=== PATIENT | male | born 1990 | race Caucasian/White ===

== ENCOUNTER 2022-08-11 09:03 | Outpatient (REF) | payer OTHER, SELFPAY ==
[2022-08-11 11:14] LABS: MANUAL DIFF FLAG NO
[2022-08-11 11:36] LABS: Appearance Urine Clear; Basophils Absolute Auto 0.1 X10*3/uL (0.0-0.2); Color Urine Yellow; Eosinophils Absolute Auto 0.1 X10*3/uL (0.0-0.4); Eosinophils Percent Auto 1.5 % (0-4); Glucose Urine UA Negative (Negative); Hematocrit 45.4 % (42.0-52.0); Hemoglobin 15.6 g/dl (14.0-18.0); Imm Gran Abs Auto 0.06 X10*3/uL (0.00-0.03); Leukocyte Esterase Urine Negative (Negative); Lymphocytes Absolute Auto 1.6 X10*3/uL (1.2-4.9); Lymphocytes Percent Auto 25.6 % (20-40); Mean Corpuscular HGB Conc 34.4 g/dl (31.0-36.0); Mean Corpuscular Hemoglobin 30.2 pg (27.0-33.0); Mean Platelet Volume 8.9 fL (9.4-12.4); Monocytes Absolute Auto 0.4 X10*3/uL (0.1-1.2); Monocytes Percent Auto 6.8 % (2-11); Neutrophils Percent Auto 64.1 % (45-73); Nitrite Urine Negative (Negative); Platelet Count 274 X10*3/uL (160-400); Red Blood Count 5.16 X10*6/uL (4.60-5.80); Red Cell Distribution Width 12.5 % (11.0-16.0); Specific Gravity - Urine <= 1.005 (1.005-1.025); Urine Blood Negative (Negative); Urine Ketones Negative (Negative); Urine Protein Negative (Neg-Trace); White Blood Count 6.2 X10*3/uL (4.8-10.8)
[2022-08-11 12:30] LABS: Alanine Aminotransferase 31 U/L (0-40); Albumin Level 4.6 g/dL (3.5-5.0); Alkaline Phosphatase 53 U/L (39-117); Anion Gap 11 (12-20); Aspartate Amino Transferase 21 U/L (5-37); Bilirubin Total 0.8 mg/dL (0.0-1.0); Blood Urea Nitrogen 13 mg/dL (9-16); Calcium 9.8 mg/dL (8.4-10.2); Carbon Dioxide 28 mmol/L (22-29); Chloride 105 mmol/L (96-108); Cholesterol 205 mg/dL; Estimated Glomerular Filt Rate > 60; Glucose Fasting 83 mg/dL (60-99); HDL Cholesterol 35 mg/dL; LDL Cholesterol Calculated 121 mg/dl; Potassium 4.3 mmol/L (3.3-5.1); Sodium 140 mmol/L (135-145); Total Protein 7.5 g/dL (6.5-8.0); Triglycerides 248 mg/dL
[2022-08-11 12:36] LABS: TSH reflex Free T4 1.39 uIU/mL (0.32-4.0)
== END 2022-08-11 09:04 | disposition home or self-care (01) ==
LOC: HO.WFDLDS 09:03
PROVIDERS: Visit Provider Nurse Practitioner Family
DX: Z00.00 Encounter for general adult medical examination without abnormal findings (principal); K21.9 Gastro-esophageal reflux disease without esophagitis
CPT/HCPCS: 36415; 80053; 80061; 81003; 84443; 85025

== ENCOUNTER 2022-09-15 11:32 | Outpatient (AMB) | payer OTHER, SELFPAY ==
--- NOTE | 2022-09-15 11:42 | MHC.OFFVIS ---
Intake Vital Signs 09/15/22 11:43 Height 6 ft Weight 205 lb 0.478 oz BMI 27.8 BP 132/81 Blood Pressure Location Lt brachial Position Sitting Pulse 81 Intake Visit Reasons: Gastroesophageal reflux disease (GERD) Intake Note: Surya presents in office as an new.patient for GERD PT CC: pt reports having GERD,constipation , bloating , hemorrhoids (rectal bleeding) pt denies any other GI Issues Clinical Implementation Specialist Required: No Accompanied by: Self / Same As Patient Allergies Seasonal Allergies Allergy (Mild, Verified 09/15/22 11:42) Nasal congestion HPI Gastroesophageal reflux disease (GERD) HPI Details Patient is here today for initial consultation. Patient reports to have postprandial dyspepsia, dysphagia without odynophagia. Patient reports postprandial acid reflux, postprandial abdominal bloating, constipation. Patient denies any nausea or vomiting. Denies melena, hematochezia, unintentional weight loss or ribbon like stools. Patient does report that he is under stress, being in with that of a 3-month-old. Patient fortunately works from home and is able to help taking care of the child. Adjusting to juggling new responsibilities. [facility] Medical History Arm fracture, left Elbow fracture, right GERD (gastroesophageal reflux disease) Radius and ulna distal fracture Right fibular fracture Family History Mother Asthma Melanoma Father No problems noted. Sister No problems noted. Brother No problems noted. 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 Current occupational exposures/hazards: No Sexual orientation: Straight/Heterosexual Gender identity: Male Cognitive needs: No Hearing needs: No Vision needs: No Review of Systems Const Denies weight gain and Denies weight loss ENT Reports no additional complaints, Reports dysphagia and Denies odynophagia Card Reports no additional complaints Resp Reports no additional complaints GI Denies abdominal pain, Denies belching, Denies melena, Denies bloating, Denies change in bowel habits, Reports dysphagia, Denies excessive flatus, Denies dyspepsia, Denies heartburn, Denies diarrhea, Denies loose stools, Denies nausea, Denies odynophagia and Denies vomiting Reports no additional complaints Musc Reports no additional complaints Neuro Reports no additional complaints Psych Reports no additional complaints Endo Reports no additional complaints Physical Exam Vital Signs: Last Vital Signs Pulse 81 09/15/22 11:43 BP 132/81 09/15/22 11:43 BMI result Body Mass Index 27.8 Const General: healthy appearing, no acute distress and well developed Nutritional Appearance: well nourished Orientation/consciousness: patient oriented x3 HEENT Head: Yes normal to inspection, Yes normocephalic and Yes atraumatic Face and sinus: Yes normal facial exam Mouth: Normal oral and palatal mucosa present Throat: Yes posterior oropharynx normal, Yes tonsils normal and Yes uvula midline Eyes General: appearance normal, both eyes and all related structures Neck Neck: Yes normal visual inspection, Yes full ROM and Yes trachea midline Thyroid: Thyroid normal Resp Effort & Inspection: normal respiratory effort, able to speak in complete sentences, no tracheal deviation and symmetric chest movement Auscultation: clear to auscultation bilaterally Cardio Rate: regular rate Heart sounds: S1 normal heart sound present and S2 normal heart sound present GI Inspection: Yes normal to inspection and No distended Palpation (GI): Soft to palpation, not firm, nontender and No hepatosplenomegaly present Auscultation: normal bowel sounds General: Yes no CVA tenderness Back/Spine/Pelvis Back: no CVA tenderness Skin General skin exam: elasticity normal, turgor normal and dry skin Neuro General: patient oriented x3 Psych Appearance: grossly normal Mental Status: mental status grossly normal Speech and movement: Normal speech and movement present Affect: normal affect Assessment & Plan Assessment & Plan (1) GERD (gastroesophageal reflux disease): Code(s): K21.9 - Gastro-esophageal reflux disease without esophagitis Qualifiers: Esophagitis presence: esophagitis presence not specified Qualified Code(s): K21.9 - Gastro-esophageal reflux disease without esophagitis Plan: Continue avoiding dietary triggers a late night snacking. Staying upright for minimum 3 hours after meals discussed with patient. Patient can take omeprazole 20 mg half an hour before breakfast. Will send patient for upper endoscopy to rule out esophagitis, gastritis, duodenitis, H pylori (2) Postprandial abdominal bloating: Code(s): R14.0 - Abdominal distension (gaseous) Plan: Low FODMAP diet discussed with patient. List of food recommended as was list of food to avoid given to patient. Will check transglutaminase, rule out pancreatic insufficiency, check lipase (3) Constipation: Code(s): K59.00 - Constipation, unspecified Qualifiers: Constipation type: slow transit constipation Qualified Code(s): K59.01 - Slow transit constipation Plan: Patient was encouraged to take tyun-lid-pcghfke medication if he continues to be constipated. Increase water intake and activity to promote better bowel motility. I will see patient after upper endoscopy, sooner on as needed basis. Patient is agreeable to this plan and verbalizes understanding of instructions. He was given the opportunity to ask questions and all questions answered. Thank you for allowing me to participate in his care Orders: Orders Transglutaminase Ab IgG 09/15/22 R10.9 - Unspecified abdominal pain Transglutaminase IgA 09/15/22 R10.9 - Unspecified abdominal pain Pancreatic Elastase-1 09/20/22 R10.9 - Unspecified abdominal pain Lipase 09/15/22 R10.9 - Unspecified abdominal pain Medications: New omeprazole 20 mg PO DAILY 30 caps 3RF K21.9 - Gastro-esophageal reflux disease without esophagitis Discontinued omeprazole Discontinued Reason: Doctor's Order 10 mg PO DAILY 30 days 30 caps 3RF Coding Level of Care Code New Pt Level 4 (34312) Diagnoses GERD (gastroesophageal reflux disease) K21.9 Esophagitis presence: esophagitis presence not specified Postprandial abdominal bloating R14.0 Constipation K59.01 Constipation type: slow transit constipation Time Spent (min) 45 Comment 30 minutes spent with patient and additional 15 minutes spent reviewing his records
[2022-09-15 11:43] VITALS: BP 132/81; PULSE 81; BMI 27.8
== END 2022-09-15 13:55 | disposition home or self-care (01) ==
PROVIDERS: PCP Family Medicine; Visit Provider Nurse Practitioner Family
DX: K21.9 Gastro-esophageal reflux disease without esophagitis (principal); R14.0 Abdominal distension (gaseous); K59.01 Slow transit constipation
CPT/HCPCS: 99204

== ENCOUNTER 2022-09-15 11:32 | Outpatient (REF) | payer OTHER, SELFPAY ==
[2022-09-15 13:13] LABS: Lipase 24 U/L (8-78)
[2022-09-21 12:39] LABS: Transglutaminase Ab IgG <1.0 U/mL; Transglutaminase IgA <1.0 U/mL
== END 2022-09-15 11:33 | disposition home or self-care (01) ==
LOC: HO.LAB 11:32
PROVIDERS: PCP Family Medicine; Visit Provider Nurse Practitioner Family
DX: K21.9 Gastro-esophageal reflux disease without esophagitis (principal); R10.13 Epigastric pain; R14.0 Abdominal distension (gaseous); K59.01 Slow transit constipation
CPT/HCPCS: 36415; 83690; 86364

== ENCOUNTER 2022-09-17 | Outpatient (REF) | payer OTHER, SELFPAY | END 2022-09-17 00:01 | disposition home or self-care (01) | LOC: HO.LNP | PROVIDERS: Visit Provider Nurse Practitioner Family | DX: R10.9 Unspecified abdominal pain (principal) | CPT/HCPCS: 82656; 87338 ==

== ENCOUNTER 2022-09-29 10:24 | Day surgery (SDC) | payer OTHER, SELFPAY ==
[2022-09-25 16:09] VITALS: BMI 27.8
--- NOTE | 2022-09-28 10:27 | HO.ANESPROP2 ---
Documented by User: Chika Sol NP 09/28/22 10:28 HPI - Anesthesia Eval Consult details Narrative: 31yo M for Upper Endoscopy [facility] Active Problems Active Problems: All Active Problems (Updated 09/26/22 @ 19:56 by Kayla Hawkins, [facility]) Dyslipidemia (Acute) Skin lesions (Acute) Normal physical examination, routine (Acute) Laboratory tests ordered as part of a complete physical exam (CPE) (Acute) GERD (gastroesophageal reflux disease) (Acute) Past Medical History Medical History Arm fracture, left Elbow fracture, right GERD (gastroesophageal reflux disease) Radius and ulna distal fracture Right fibular fracture Family History Family History Mother Asthma Melanoma Father No problems noted. Sister No problems noted. Brother No problems noted. Surgical History Surgical History History of surgery on arm History of surgery on lower extremity Hx of esophagogastroduodenoscopy Social History Social History Household Members: Spouse and Children Housing: House Are you a primary medicare sales executive to a significant other at home: No Do you presently have visiting nurse or other home services: No Alcohol intake: current Patient Tobacco Use Status: Former Tobacco user Quit Date: 2 yrs ago Tobacco use type: Cigarette Cigarette Packs Per Day: 0 Cigarettes Per Day: 2 Years Smoked: 2 e-Cigarette/Vaping Use: Former Use (Occasionally) Second Hand Smoke Exposure: No Use of substances other than those prescribed or required for medical reasons: Yes Substance Use Frequency: Occasionally Special kathrin needs: No Are you DNR?: No Advance Directives: No Advance Directives Information Provided: Yes service: No Current occupational status: employed 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 Current occupational exposures/hazards: No Sexual orientation: Straight/Heterosexual Gender identity: Male Cognitive needs: No Hearing needs: No Vision needs: No Meds Allergies Allergy/AdvReac Type Severity Reaction Status Date / Time Seasonal Allergies Allergy Mild Nasal Verified 09/29/22 10:52 congestion Exam Exam Date and Time: September 28, 2022 1027 Height,Weight and Vital Signs: Height 6 ft Weight 92.986 kg Pertinent Lab Results Pertinent Lab Results: Laboratory Tests 08/11/22 08/11/22 09:10 09:10 WBC 6.2 Hgb 15.6 Hct 45.4 Plt Count 274 Sodium 140 Potassium 4.3 Chloride 105 Carbon Dioxide 28 BUN 13 Creatinine 0.86 Assessment and Plan Assessment Anesthesia Assessment: Chart Reviewed Documented by User: Kathryn Iqbal MD 09/29/22 11:50 [facility] Active Problems Active Problems: All Active Problems (Updated 09/29/22 @ 11:40 by Kathryn Iqbal MD) Dyslipidemia (Acute) Skin lesions (Acute) Normal physical examination, routine (Acute) Laboratory tests ordered as part of a complete physical exam (CPE) (Acute) GERD (gastroesophageal reflux disease) (Acute) Past Medical History Medical History Arm fracture, left Elbow fracture, right GERD (gastroesophageal reflux disease) Radius and ulna distal fracture Right fibular fracture Family History Family History Mother Asthma Melanoma Father No problems noted. Sister No problems noted. Brother No problems noted. Family history of problems with anesthesia: No Surgical History Surgical History History of surgery on arm History of surgery on lower extremity Hx of esophagogastroduodenoscopy History of Problems with Anesthesia: No Social History Social History Household Members: Spouse and Children Housing: House Are you a primary medicare sales executive to a significant other at home: No Do you presently have visiting nurse or other home services: No Alcohol intake: current Patient Tobacco Use Status: Former Tobacco user Quit Date: 2 yrs ago Tobacco use type: Cigarette Cigarette Packs Per Day: 0 Cigarettes Per Day: 2 Years Smoked: 2 e-Cigarette/Vaping Use: Former Use (Occasionally) Second Hand Smoke Exposure: No Use of substances other than those prescribed or required for medical reasons: Yes Substance Use Frequency: Occasionally Special kathrin needs: No Are you DNR?: No Advance Directives: No Advance Directives Information Provided: Yes service: No Current occupational status: employed 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 Current occupational exposures/hazards: No Sexual orientation: Straight/Heterosexual Gender identity: Male Cognitive needs: No Hearing needs: No Vision needs: No Meds Allergies Allergy/AdvReac Type Severity Reaction Status Date / Time Seasonal Allergies Allergy Mild Nasal Verified 09/29/22 10:52 congestion Exam Height,Weight and Vital Signs: Height 6 ft Weight 92.986 kg Vital Signs Temp Pulse Resp BP Pulse Ox O2 Del Method 09/29/22 10:57 97.3 F 69 15 128/89 95 Room Air Airway Mallampati Class: II TM Dist: >3cm Neck ROM: Full Loose/Missing/Broken Teeth: No (Denies broken, loose, missing teeth) Heart: RRR Lungs: CTAB Assessment and Plan Assessment Anesthesia Assessment: Anesthesia Plan Discussed Final Anesthetic Review Family History of Problems with Anesthesia: No History of Problems with Anesthesia: No NPO: Yes ASA Class: II Final Preanesthetic Review: No Changes in Pt Med Stat, Meds/Allgs Chart Reviewed, Consent Obtained/Reviewed and Anes Risks/Benef Reviewed Patient Risk: Low Procedure Risk: Low Assessment/Block/Sedation in SS: Assess/Block/Sedation-SS Anesthetic Plan Anesthetic Plan: MAC: Disposition: Standard PACU
[2022-09-29 10:57] VITALS: BP 128/89; PULSE 69; RESP 15; TEMP 36.3; O2SAT 95
--- NOTE | 2022-09-29 11:06 | MHC.SHP ---
Pre-Procedural Eval Section A Date of Service: 09/29/22 The patient is an INPATIENT: No Changes since office visit: Yes Patient answered all questions; No Cold of Flu in the past 2 weeks, No New Medical Problems and No Changes in Medication The History & Physical has been completed within 30 days and I have reviewed it.: Yes Section B Chief Complaint: gerd, Allergies: Allergies Allergy/AdvReac Type Severity Reaction Status Date / Time Seasonal Allergies Allergy Mild Nasal Verified 09/29/22 10:52 congestion Plan I have reviewed the history and physical and performed a pertinent physical examination on my patient. No changes have occurred unless specified. Time Spent With Patient Time: Total time managing care of this patient today ____ minutes.
[2022-09-29] MEDS: Lactated Ringers 1,000 ML 100 ML IVCONT (11:08)
--- NOTE | 2022-09-29 12:17 | P.OP_ITS ---
Operative Note Operative Note Date of Service: 09/29/22 Narrative: FLEXIBLE TRANSORAL UPPER GASTROINTESTINAL ENDOSCOPY WITH BIOPSIES Pre-op diagnosis: GERD, dyspepsia, bloating Post-op diagnosis: GERD, Gastritis Endoscopist:? Elliott Suazo MD Anesthesia:?MAC Consent: Indications for the procedure and potential complications of bleeding, perforation, reaction to medications and missed diagnosis were discussed with the patient and informed consent was obtained. Instrument: Olympus GIF H 190 mid size upper endoscope Monitoring: Vital signs and clinical assessment, continuous EKG monitoring, Pulse oximetry, Carbon Dioxide monitoring and blood pressure monitoring were done throughout the procedure. Procedure: The patient was placed in the left lateral decubitis position and pre-procedure medications were administered and a bite block was placed. The endoscope was inserted into the mouth and advanced under direct vision to the third part of duodenum. A careful inspection was made as the upper endoscope was withdrawn including a retroflexed examination of the proximal stomach; Findings and interventions are described below. Findings: Larynx: Normal Esophagus: GE junction at 40 cms. No esophagitis or Kaplan's. Biopsies were obtained from proximal esophagus (rule out EOE) and distal esophagus (rule out esophagitis) Stomach: Moderate diffuse gastric erythema. Biopsies were obtained from the gastric antrum and body. Grade 2 flap valve on retroflexed examination of the cardia. Duodenum: Normal bulb and descending duodenum. Biopsies were obtained from 3rd part of duodenum to check for celiac sprue. Intervention: Biopsies as noted above Impression and Post Procedure Diagnosis: Endoscopy Findings: ESOPHAGUS: GE junction at 40 cms. No esophagitis or Kaplan's. Biopsies were obtained from proximal esophagus (rule out EOE) and distal esophagus (rule out esophagitis) STOMACH: Moderate diffuse gastric erythema. Biopsies were obtained from the gastric antrum and body. DUODENUM: Normal - biopsied to check for celiac sprue Plan: Await pathology results Patient has an appointment on 10/20/22 in the [facility] with Kayla Hawkins FNP- [facility]. Above findings were reviewed with the patient and GERD handout was given in the discharge area Pt reported feeling better since he started taking the Omeprazole. BIOPSIES SHOWED: A.? Small bowel, biopsy:? Superficial fragments of small intestinal mucosa within normal limits. B.? Stomach, antrum, biopsy:? Antral-type mucosa with mild chronic inactive inflammation; no Helicobacter organisms seen. C.? Stomach, body, biopsy:? Oxyntic mucosa within normal limits. D.? Esophagus, distal, biopsy:? Squamous epithelium within normal limits; no inflammation seen. E.? Esophagus, proximal, biopsy:? Squamous epithelium within normal limits; no inflammation seen.
[2022-09-29 13:01] VITALS: BP 111/70; PULSE 74; RESP 14; TEMP 36.6; O2SAT 94
[2022-09-29 13:16] VITALS: BP 109/71; PULSE 69; RESP 16; O2SAT 98
[2022-09-29 13:28] VITALS: BP 107/71; PULSE 65; RESP 16; TEMP 36.5; O2SAT 98
== END 2022-09-29 14:00 | disposition home or self-care (01) ==
PROVIDERS: PCP Family Medicine; Visit Provider Internal Medicine Gastroenterology
PROC: 0DJ08ZZ Inspection of Upper Intestinal Tract, Via Natural or Artificial Opening Endoscopic (ICD-10-PCS; CPT 43235; principal; 2022-09-29 12:10)
DX: K21.9 Gastro-esophageal reflux disease without esophagitis (principal); K29.70 Gastritis, unspecified, without bleeding; R13.10 Dysphagia, unspecified; R10.9 Unspecified abdominal pain; E78.5 Hyperlipidemia, unspecified; Z87.891 Personal history of nicotine dependence; Z79.899 Other long term (current) drug therapy
CPT/HCPCS: 43239; 88305; 88342

== ENCOUNTER → 2022-09-29 10:24 | Outpatient (BNV) | payer OTHER, SELFPAY | PROVIDERS: PCP Family Medicine; Visit Provider Internal Medicine Gastroenterology | DX: K21.9 Gastro-esophageal reflux disease without esophagitis (principal); K30 Functional dyspepsia; K29.70 Gastritis, unspecified, without bleeding | CPT/HCPCS: 43239 ==

== ENCOUNTER 2022-10-20 11:18 | Outpatient (AMB) | payer OTHER, SELFPAY ==
--- NOTE | 2022-10-20 11:23 | MHC.OFFVIS ---
Intake Vital Signs 10/20/22 11:25 Height 6 ft Weight 205 lb BMI 27.8 BP 112/60 Blood Pressure Location Lt brachial Position Sitting Pulse 73 Intake Visit Reasons: S/p egd Gabriele Intake Note: Patient follow up for EGD results. Patient cc: abdominalpain with bloating, and diarrhea. Denies any other GI issues. 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 Staying upright for minimum 3 hours after meals discussed with patient. Patient can take omeprazole 20 mg half an hour before breakfast. Will send patient for upper endoscopy to rule out esophagitis, gastritis, duodenitis, H pylori Postprandial abdominal bloating Low FODMAP diet discussed with patient. List of food recommended as was list of food to avoid given to patient. Will check transglutaminase, rule out pancreatic insufficiency, check lipase Constipation Patient was encouraged to take [id number] medication if he continues to be constipated. Increase water intake and activity to promote better bowel motility. I will see patient after upper endoscopy, sooner on as needed basis. Patient is agreeable to this plan and verbalizes understanding of instructions. He was given the opportunity to ask questions and all questions answered. ? Thank you for allowing me to participate in his care Plan Orders Orders Transglutaminase Ab IgG 09/15/22 R10.9 Transglutaminase IgA 09/15/22 R10.9 Pancreatic Elastase-1 09/20/22 R10.9 Lipase 09/15/22 R10.9 Medications New omeprazole 20 mg PO DAILY 30 caps 3RF K21.9 Discontinued omeprazole Discontinued Reason: Doctor's Order 10 mg PO DAILY 30 days 30 caps 3RF UPPER ENDOSCOPY Findings: Larynx:? Normal Esophagus: GE junction at 40 cms. No esophagitis or Kaplan's. Biopsies were obtained from proximal esophagus (rule out EOE) and distal esophagus (rule out esophagitis) Stomach: Moderate diffuse gastric erythema. Biopsies were obtained from the gastric antrum and body. Grade 2 flap valve on retroflexed examination of the cardia. Duodenum: Normal bulb and descending duodenum. Biopsies were obtained from 3rd part of duodenum to check for celiac sprue. Intervention: Biopsies as noted above Impression and Post Procedure Diagnosis: Endoscopy Findings: ESOPHAGUS: GE junction at 40 cms. No esophagitis or Kaplan's. Biopsies were obtained from proximal esophagus (rule out EOE) and distal esophagus (rule out esophagitis) STOMACH:? Moderate diffuse gastric erythema. Biopsies were obtained from the gastric antrum and body. DUODENUM: Normal - biopsied to check for celiac sprue Plan: Above findings were reviewed with the patient and GERD handout was given in the discharge area Pt reported feeling better since he started taking the Omeprazole. BIOPSIES SHOWED: A.? Small bowel, biopsy:? Superficial fragments of small intestinal mucosa within normal limits. B.? Stomach, antrum, biopsy:? Antral-type mucosa with mild chronic inactive inflammation; no Helicobacter organisms seen. C.? Stomach, body, biopsy:? Oxyntic mucosa within normal limits. D.? Esophagus, distal, biopsy:? Squamous epithelium within normal limits; no inflammation seen. E.? Esophagus, proximal, biopsy:? Squamous epithelium within normal limits; no inflammation seen. TODAY'S VISIT Patient is here today for follow-up and to discuss lab results as well as upper endoscopy results. Patient continues to have epigastric discomfort, frequent belching, occasional postprandial fullness, dyspepsia without dysphagia or odynophagia. Upper endoscopy show mild chronic inactive inflammation in his stomach normal esophagus and normal small bowel. Patient had no H pylori. Tested via stool and upper endoscopy biopsy. Negative for pancreatic insufficiency. No celiac and no pancreatitis. Patient reports that even when he eats mildly spicy food he will feel like he is unable to digest that well. Feels full for long time after and belching frequently. Patient reports occasional postprandial loose stools. Denies melena, hematochezia, unintentional weight loss or ribbon like stools. Postprandial abdominal bloating frequently. Patient is trying to follow low FODMAP diet. Avoiding food that is spicy or fried. [facility] Medical History Arm fracture, left Elbow fracture, right GERD (gastroesophageal reflux disease) Radius and ulna distal fracture Right fibular fracture Surgical History History of surgery on arm History of surgery on lower extremity Hx of esophagogastroduodenoscopy Family History Mother Asthma Melanoma Father No problems noted. Sister No problems noted. Brother No problems noted. Social History Household Members: Spouse and Children Both parents involved: No Caregiver staying overnight: No Housing: House Are you a primary wound care nurse to a significant other at home: No Do you presently have visiting nurse or other home services: No 75 years or older and lives alone: No Alcohol intake: current Patient Tobacco Use Status: Former Tobacco user Quit Date: 2 yrs ago Tobacco use type: Cigarette Cigarette Packs Per Day: 0 Cigarettes Per Day: 2 Years Smoked: 2 e-Cigarette/Vaping Use: Former Use (Occasionally) Second Hand Smoke Exposure: No Special kathrin needs: No service: No Current occupational status: employed 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 Current occupational exposures/hazards: No Sexual orientation: Straight/Heterosexual Gender identity: Male Cognitive needs: No Hearing needs: No Vision needs: No Review of Systems Const Denies weight gain and Denies weight loss ENT Reports no additional complaints, Denies dysphagia and Denies odynophagia Card Reports no additional complaints Resp Reports no additional complaints GI Denies abdominal pain, Denies belching, Denies melena, Reports bloating, Denies change in bowel habits, Denies dysphagia, Denies excessive flatus, Reports dyspepsia, Reports heartburn, Denies diarrhea, Reports loose stools, Denies nausea, Denies odynophagia and Denies vomiting Reports no additional complaints Musc Reports no additional complaints Neuro Reports no additional complaints Psych Reports no additional complaints Endo Reports no additional complaints Physical Exam Vital Signs: Last Vital Signs Pulse 73 10/20/22 11:25 BP 112/60 10/20/22 11:25 BMI result Body Mass Index 27.8 Const General: healthy appearing, no acute distress and well developed Nutritional Appearance: well nourished Orientation/consciousness: patient oriented x3 HEENT Head: Yes normal to inspection, Yes normocephalic and Yes atraumatic Face and sinus: Yes normal facial exam Mouth: Normal oral and palatal mucosa present Throat: Yes posterior oropharynx normal, Yes tonsils normal and Yes uvula midline Eyes General: appearance normal, both eyes and all related structures Neck Neck: Yes normal visual inspection, Yes full ROM and Yes trachea midline Thyroid: Thyroid normal Resp Effort & Inspection: normal respiratory effort, able to speak in complete sentences, no tracheal deviation and symmetric chest movement Auscultation: clear to auscultation bilaterally Cardio Rate: regular rate Heart sounds: S1 normal heart sound present and S2 normal heart sound present GI Inspection: Yes normal to inspection and No distended Palpation (GI): Soft to palpation, not firm, nontender and No hepatosplenomegaly present Auscultation: normal bowel sounds General: Yes no CVA tenderness Back/Spine/Pelvis Back: no CVA tenderness Skin General skin exam: elasticity normal, turgor normal and dry skin Neuro General: patient oriented x3 Psych Appearance: grossly normal Mental Status: mental status grossly normal Speech and movement: Normal speech and movement present Assessment & Plan Assessment & Plan (1) GERD (gastroesophageal reflux disease): Code(s): K21.9 - Gastro-esophageal reflux disease without esophagitis Qualifiers: Esophagitis presence: without esophagitis Qualified Code(s): K21.9 - Gastro-esophageal reflux disease without esophagitis Plan: Omeprazole was helping, however patient continue will have breakthrough symptoms as well as feeling epigastric pain when he woke up in the morning. Will start patient on pantoprazole 40 mg every morning half an hour before breakfast. At night time we will send a script for sucralfate. Will try treatment like this for 3 months to see if patient will have decrease in symptoms. However the importance of avoiding dietary triggers discussed with patient. Staying upright for minimum 3 hours after meals discussed with patient as well (2) Early satiety: Code(s): R68.81 - Early satiety Plan: Will send patient for gastric emptying study to rule out gastroparesis. Symptoms of feeling full frequently and feeling like the food is staying in his stomach for hours afterwards causing epigastric discomfort. (3) Postprandial diarrhea: Code(s): K52.9 - Noninfective gastroenteritis and colitis, unspecified Plan: Postprandial loose stools. Patient was encouraged to avoid dietary triggers. Will start taking Citrucel daily to help him bulk his stools. Patient was encouraged to drink plenty fluids. I will see him in 4 months, sooner on as needed basis. Patient is agreeable to this plan and verbalizes understanding of instructions. He was given the opportunity to ask questions all questions answered. Thank you for allowing me to participate in his care Orders: Orders NM gastric emptying study Today K21.9 - Gastro-esophageal reflux disease without esophagitis, R68.81 - Early satiety Medications: New pantoprazole take one tablet half an hour before breakfast 40 mg PO DAILY 30 tabs 2RF K21.9 - Gastro-esophageal reflux disease without esophagitis methylcellulose (laxative) (Citrucel) take it with full glass of water 500 mg PO DAILY 90 tabs 2RF K59.00 - Constipation, unspecified sucralfate 10 mL PO BEDTIME 400 mL 3RF K21.9 - Gastro-esophageal reflux disease without esophagitis Discontinued omeprazole Discontinued Reason: Doctor's Order 20 mg PO DAILY 30 caps 3RF K21.9 - Gastro-esophageal reflux disease without esophagitis Coding Level of Care Code Est Pt Level 4 (92598) Diagnoses GERD (gastroesophageal reflux disease) K21.9 Esophagitis presence: without esophagitis Early satiety R68.81 Postprandial diarrhea K52.9 Time Spent (min) 40 Comment 25 minutes spent with patient and additional 15 minutes spent reviewing his records
[2022-10-20 11:25] VITALS: BP 112/60; PULSE 73; BMI 27.8
== END 2022-10-20 12:12 | disposition home or self-care (01) ==
PROVIDERS: PCP Family Medicine; Visit Provider Nurse Practitioner Family
DX: K21.9 Gastro-esophageal reflux disease without esophagitis (principal); R68.81 Early satiety; K52.9 Noninfective gastroenteritis and colitis, unspecified
CPT/HCPCS: 99214

== ENCOUNTER → 2022-10-20 11:18 | Outpatient (BNVA) | payer OTHER, SELFPAY | PROVIDERS: PCP Family Medicine; Visit Provider Nurse Practitioner Family ==

== ENCOUNTER 2023-10-01 08:29 | Outpatient (AMB) | payer OTHER, SELFPAY ==
--- NOTE | 2023-10-01 08:32 | A.OFFPC_ITS ---
Vital Signs 10/01/23 08:38 Height 6 ft Weight 210 lb 4 oz BMI 28.5 BP 118/72 Blood Pressure Location Rt brachial Position Sitting Respiration 16 Pulse 83 Pulse Source Pulse Oximeter Temp 97.9 F Temp Source Oral Pulse Oximetry (%) 95 Oxygen Delivery Method Room Air Intake Visit Reasons: CPE Intake Note: patient here for CPE. 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 Allergies Seasonal Allergies Allergy (Mild, Verified 10/01/23 08:44) Nasal congestion Medication List - Last Reconciled 10/01/23 by Karlee Malagon CNP omeprazole 10 mg PO DAILY Tobacco use date assessed: 10/01/23 Dental Screening Dental Screen Date: 10/01/23 Did you have a dental visit in the last 12 months?: No Did you have a dental problem in the last 6 months where you did not have access to dental care?: No Was dental information given to patient?: Yes HPI HPI Comments History of Present Illness Details 32-year-old male presents for an extende d physical exam He has history of hyperlipidemia and GERD He is on omeprazole which he admits to taking as prescribed without adverse reactions He notes that he has been eating healthy, sleeping well, and exercising routinely He offers no complaints and denies acute symptoms at this time He is enjoying father with. His son is [id number]. His is with a girl and close to her due date. He requests vasectomy. Former smoker, history of vaping, drinks alcohol occasionally, no recreational drug use [facility] Medical History Arm fracture, left Elbow fracture, right GERD (gastroesophageal reflux disease) Radius and ulna distal fracture Right fibular fracture Surgical History History of surgery on arm History of surgery on lower extremity Hx of esophagogastroduodenoscopy Family History Mother Asthma Melanoma Father No problems noted. Sister No problems noted. Brother No problems noted. Social History Household Members: Spouse and Children Both parents involved: No Caregiver staying overnight: No Housing: House Are you a primary intensive care medicine specialist to a significant other at home: No Do you presently have visiting nurse or other home services: No 75 years or older and lives alone: No Alcohol intake: current Patient Tobacco Use Status: Former Tobacco user Tobacco use type: Cigarette Cigarette Packs Per Day: 0 Cigarettes Per Day: 2 Years Smoked: 2 e-Cigarette/Vaping Use: Former Use Second Hand Smoke Exposure: No Special kathrin needs: No service: No Current occupational status: employed 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 1. Little interest or pleasure in doing things: not at all 2. Feeling down, depressed, or hopeless: not at all 3. Trouble falling or staying asleep, or sleeping too much: not at all 4. Feeling tired or having little energy: not at all 5. Poor appetite or overeating: not at all 6. Feeling bad about yourself - or that you are a failure or have let yourself or your family down: not at all 7. Trouble concentrating on things, such as reading the newspaper or watching television: not at all 8. Moving or speaking so slowly that other people could have noticed. Or the opposite - being so fidgety or restless that you have been moving around a lot more than usual: not at all 9. Thoughts that you would be better off or of hurting yourself in some way: not at all Total score: 0 Depression Screening Interpretation: Negative Depression Screening Done: Yes 31870 - PHQ-9 Billing: Yes Source: Developed by Drs. Edis Navas, Dayan Yi, Rja Robertson and colleagues, with an educational flash from [employer]. Thrive Questionnaire Date Thrive assessed: 07/14/22 AUDIT C Alcohol Use Questionnaire (AUDIT-C) 1. How often do you have a drink containing alcohol?: Monthly or less 2. How many drinks containing alcohol do you have on a typical day when you are drinking?: 1 or 2 3. How often do you have six or more drinks on one occasion?: Never Total Score: 1 Score Reviewed/Action Taken: Yes ESE-7 AMB Questionnaire ESE-7 Date ESE - 7 assessed: 10/01/23 Feeling nervous, anxious, or on edge: 0 = Not at all Not being able to stop or control worryin = Not at all Worrying too much about different things: 0 = Not at all Trouble relaxin = Not at all Being so restless that it is hard to sit still: 0 = Not at all Becoming easily annoyed or irritable: 0 = Not at all Feeling afraid as if something awful might happen: 0 = Not at all Total ESE-7 score (0-4 normal; 5-9 mild; 10-14 moderate; 15-21 severe): 0 Source: Developed by Drs. Edis Navas, Dayan Yi, Raj Robertson and colleagues, with an educational flash from [employer]. ESE-7 Assessment Billing ESE-7 Assessment Tool: ESE-7 Assessment 74406 Review of Systems Const Details: Denies chills, Denies fatigue, Denies fever(s), Denies headache(s) and Denies weakness HEENT Denies change in vision, Denies dizziness, Denies headache(s), Denies hearing loss, Denies nasal congestion, Denies sinus pain, Denies sinus pressure and Denies sore throat Card Denies chest pain, Denies lightheadedness, Denies dyspnea and Denies other (palpitations) Resp Denies cough, Denies dyspnea and Denies wheezing GI Denies abdominal pain, Denies melena, Denies hematochezia, Denies change in bowel habits, Denies dyspepsia and Denies nausea Denies hematuria and Denies dysuria Musc Denies abnormal gait, Denies myalgias, Denies arthralgias, Denies numbness and Denies tingling Skin/Breast Denies rash, Denies unusual bruising and Denies wounds Neuro Denies abnormal gait, Denies dizziness, Denies headache(s), Denies memory loss, Denies numbness, Denies Sensory deficit (Neuro), Denies tingling and Denies weakness Psych Denies anxiety, Denies depression and Denies memory loss Endo Denies cold intolerance, Denies fatigue, Denies heat intolerance, Denies po lydipsia and Denies polyuria Juan Manuel/Lymph Denies easy bleeding and Denies easy bruising Aller/Immun Denies wheezing Physical exam (Primary Care) Vital Signs: Last Vital Signs Temp 97.9 F 10/01/23 08:38 Pulse 83 10/01/23 08:38 Resp 16 10/01/23 08:38 BP 118/72 10/01/23 08:38 Pulse Ox 95 10/01/23 08:38 Oxygen Delivery Method Room Air 10/01/23 08:38 BMI result Body Mass Index 28.5 Tobacco/Smoking Status: Tobacco use Status Tobacco use date assessed 10/01/23 10/01/23 08:38 Patient Tobacco Use Status Former Tobacco user 10/01/23 08:32 Tobacco use type Cigarette 10/01/23 08:32 e-Cigarette/Vaping Use Former Use 10/01/23 08:32 Depression Screening Interpretation: Negative Thrive Assessment: Date of Thrive Assessment Date Thrive assessed 07/14/22 10/01/23 08:32 Const Other: General: no acute distress, well developed, alert and awake Nutritional Appearance: well nourished Orientation/consciousness: patient oriented x3 HENMT Head: Yes normocephalic and Yes atraumatic Ears: hearing grossly normal bilaterally and TM's normal bilaterally General nose exam: Normal external nose present and Normal nares present Mouth: Normal oral and palatal mucosa present and moist mucous membranes Teeth and gingiva: dentition normal Throat: Yes oropharynx normal Eyes Pupils: Equal, round and reactive pupils present and Pupil accommodation reflex normal EOM: EOMs intact bilaterally Neck Neck: Yes normal visual inspection, Yes no lymphadenopathy and Yes trachea midline Thyroid: Thyroid normal Carotids: no bruits Lymphatic: no lymphadenopathy noted Chest Chest palpation & inspection: normal inspection of the chest Resp Effort & Inspection: normal respiratory effort Auscultation: clear to auscultation bilaterally Cardio Rate: regular rate Rhythm: regular rhythm Heart sounds: S1 normal heart sound present, S2 normal heart sound present, no gallops, no murmurs and no rubs Bruits: no abdominal aortic bruits and no carotid bruits GI Palpation (GI): No Abdominal aortic bruit present, Soft to palpation, nontender, No hepatosplenomegaly present and No Rebound tenderness present Auscultation: normal bowel sounds General: Yes no CVA tenderness Back/Spine/Pelvis Back: no CVA tenderness Cervical Spine: cervical ROM normal and No Cervical spine tenderness Thoracic/Lumbar Spine: thoraco-lumbar ROM normal, No pain with thoraco-lumbar ROM, No thoracic spinal tenderness and No lumbar spinal tenderness Skin General: warm and dry. Normal skin color. Normal skin turgor Lesions: no lesions Rashes: no rashes Trauma: no lacerations or abrasions Wounds: no wounds Nails: normal Neuro General: patient oriented x3, gait normal and CN's II-XI intact bilaterally Cranial nerves: Yes Equal, round and reactive pupils present Cognition (Neuro): normal cognition Gait exam (Neuro): Normal gait present Motor exam (neuro): 5/5 motor strength present throughout Sensory Exam: No Sensory deficit (Neuro) Deep tendon reflexes (DTR's): Right patellar reflex intensity grade: 2+ and Left patellar reflex intensity grade: 2+ Extrem General: Yes normal to inspection, No edema and No calf tenderness Psych Appearance: grossly normal Affect: normal affect Attitude: cooperative Thought process: Normal thought process present Assessment and Plan Assessment & Plan (1) Normal physical examination, routine: Code(s): Z00.00 - Encounter for general adult medical examination without abnormal findings Plan: No significant physical restrictions or limitations noted Continue current treatment regimen Healthy diet and routine exercise encouraged Advised to limit foods high in saturated fat and avoid foods high in trans fat Encouraged to get lab work done and follow-up in 2-3 weeks for a telehealth visit for labs review Return with symptoms or concerns Verbalized understanding and agreed with the treatment plan (2) Encounter for vasectomy counseling: Code(s): Z30. - Encounter for other general counseling and advice on contraception Plan: Requests vasectomy Ref[place] to [facility] [place] (3) Laboratory tests ordered as part of a complete physical exam (CPE): Code(s): Z00.00 - Encounter for general adult medical examination without abnormal findings Plan: Fasting labs ordered as part of a complete physical exam. Advised to fast for at least 10 hours before getting labs drawn. May drink water Verbalized understanding and agreed with treatment plan. Orders: Orders Lipid Panel Today Z00.00 - Encounter for general adult medical examination without abnormal findings Complete Blood Count Auto Diff Today Z00.00 - Encounter for general adult medical examination without abnormal findings Comprehensive Bell. Panel Fast Today Z00.00 - Encounter for general adult medical examination without abnormal findings TSH reflex Free T4 Today Z00.00 - Encounter for general adult medical examination without abnormal findings UA CC w/rflx Micro + Cult Today Z00.00 - Encounter for general adult medical examination without abnormal findings Referrals Urology Referral Z30.09 - Encounter for other general counseling and advice on contraception Coding Level of Care Code Est Pt Prev Care 18-39y(47027) Diagnoses Normal physical examination, routine Z00.00 Encounter for vasectomy counseling Z30.09 Laboratory tests ordered as part of a complete physical exam (CPE) Z00.00 Additional Codes ESE-7 Assessment Billing - ESE-7 Assessment Tool: ESE-7 Assessment 11286 ([id number])
[2023-10-01 08:38] VITALS: BP 118/72; PULSE 83; RESP 16; TEMP 36.6; O2SAT 95; BMI 28.5
== END 2023-10-01 08:59 | disposition home or self-care (01) ==
PROVIDERS: PCP Family Medicine; Visit Provider Nurse Practitioner Family
DX: Z00.00 Encounter for general adult medical examination without abnormal findings (principal)
CPT/HCPCS: 99395

== ENCOUNTER 2023-10-20 07:38 | Outpatient (REF) | payer OTHER, SELFPAY ==
[2023-10-20 11:43] LABS: Appearance Urine Turbid; Color Urine Yellow; Glucose Urine UA Negative (Negative); Leukocyte Esterase Urine Negative (Negative); Nitrite Urine Negative (Negative); PH 8.5 (5.0-9.0); Urine Blood Negative (Negative); Urine Ketones Negative (Negative); Urine Protein Trace mg/dL (Neg-Trace)
[2023-10-20 12:54] LABS: Alanine Aminotransferase 40 U/L (0-40); Albumin Level 4.6 g/dL (3.5-5.0); Alkaline Phosphatase 59 U/L (39-117); Anion Gap 13 (12-20); Aspartate Amino Transferase 28 U/L (5-37); Bilirubin Total 0.9 mg/dL (0.0-1.0); Blood Urea Nitrogen 13 mg/dL (9-16); Calcium 9.4 mg/dL (8.4-10.2); Carbon Dioxide 27 mmol/L (22-29); Chloride 103 mmol/L (96-108); Cholesterol 184 mg/dL (<200); Estimated Glomerular Filt Rate > 60; Glucose Fasting 89 mg/dL (60-99); HDL Cholesterol 33 mg/dL (>40); LDL Cholesterol Calculated 88 mg/dL (<100); Potassium 4.1 mmol/L (3.3-5.1); Sodium 139 mmol/L (135-145); Total Protein 7.9 g/dL (6.5-8.0); Triglycerides 317 mg/dL (<150)
== END 2023-10-20 07:39 | disposition home or self-care (01) ==
LOC: HO.WFDLDS 07:38
PROVIDERS: Visit Provider Nurse Practitioner Family
DX: Z00.00 Encounter for general adult medical examination without abnormal findings (principal); Z13.6 Encounter for screening for cardiovascular disorders
CPT/HCPCS: 36415; 80053; 80061; 81003; 84443

== ENCOUNTER 2023-11-25 14:36 | Outpatient (AMB) | payer OTHER, SELFPAY ==
--- NOTE | 2023-11-25 12:42 | MHC.PC.OV ---
Intake Visit Reasons: follow up labs Allergies Seasonal Allergies Allergy (Mild, Verified 10/01/23 08:44) Nasal congestion Tobacco use date assessed: 10/01/23 Dental Screening Dental Screen Date: 10/01/23 HPI HPI Comments History of Present Illness Details 33 y/o male presents for a telehealth visit for review of recent lab results He offers no complaints and denies acute symptoms at this time He admits to making healthy lifestyle changes CBC was not drawn by the lab [facility] Medical History Arm fracture, left Elbow fracture, right GERD (gastroesophageal reflux disease) Radius and ulna distal fracture Right fibular fracture Surgical History History of surgery on arm History of surgery on lower extremity Hx of esophagogastroduodenoscopy Family History Mother Asthma Melanoma Father No problems noted. Sister No problems noted. Brother No problems noted. Social History Household Members: Spouse and Children Both parents involved: No Caregiver staying overnight: No Housing: House Are you a primary healthcare consultant to a significant other at home: No Do you presently have visiting nurse or other home services: No 75 years or older and lives alone: No Alcohol intake: current Patient Tobacco Use Status: Former Tobacco user Tobacco use type: Cigarette Cigarette Packs Per Day: 0 Cigarettes Per Day: 2 Years Smoked: 2 e-Cigarette/Vaping Use: Former Use Second Hand Smoke Exposure: No Special kathrin needs: No service: No Current occupational status: employed 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 Edis Navas, Dayan Yi, Raj Robertson and colleagues, with an educational flash from [employer]. Review of Systems Const Details: Const Denies chills, Denies fatigue, Denies fever(s), Denies headache(s) and Denies weakness ENT Denies dizziness and Denies headache(s) Card Denies chest pain, Denies lightheadedness, Denies dyspnea and Denies other (Palpitations) Resp Denies cough, Denies dyspnea, Denies wheezing and Denies other ( shortness of breath) GI Denies abdominal pain, Denies melena, Denies hematochezia, Denies change in bowel habits, Denies dyspepsia and Denies nausea Denies hematuria and Denies dysuria Musc Denies abnormal gait, Denies myalgias, Denies arthralgias, Denies numbness and Denies tingling Skin/Breast Denies rash, Denies unusual bruising and Denies wounds Neuro Denies abnormal gait, Denies dizziness, Denies headache(s), Denies memory loss, Denies numbness, Denies Sensory deficit (Neuro), Denies tingling and Denies weakness Psych Denies anxiety, Denies depression, Denies memory loss Endo Denies cold intolerance, Denies fatigue, Denies heat intolerance, Denies polydipsia and Denies polyuria Aller/Immun Denies wheezing Physical exam (Primary Care) Tobacco/Smoking Status: Tobacco use Status Tobacco use date assessed 10/01/23 11/25/23 12:43 Patient Tobacco Use Status Former Tobacco user 11/25/23 12:43 Tobacco use type Cigarette 11/25/23 12:43 e-Cigarette/Vaping Use Former Use 11/25/23 12:43 Thrive Assessment: Date of Thrive Assessment Date Thrive assessed 07/14/22 11/25/23 12:43 Const Other: Telehealth visit. No physical exam Telehealth Telehealth Telehealth Platform: Telephone Location of provider rendering services: practice address Location of patient: address on file Patient Identification confirmed using: Name, : Yes Telehealth method: voice only Patient verbally consented to treatment: Yes Patient verbally consented to billing insurance company: Yes Patient informed of any privacy concerns related to visit: Yes Assessment and Plan Assessment & Plan (1) Dyslipidemia: Code(s): E78.5 - Hyperlipidemia, unspecified Plan: Recent lab results reviewed with the patient Triglycerides levels were elevated, 317; HDL level is low, 33 He will continue to make healthy lifestyle changes Advised to limit foods high in saturated fat and avoid foods high in trans fat Routine exercise encouraged Advised to get fasting lipid panel blood work done before his next visit Encouraged to get CBC blood work drawn Follow-up in 2 months or sooner with symptoms or concerns Verbalized understanding and agreed with the treatment plan Orders: Orders Lipid Panel 2 Months E78.5 - Hyperlipidemia, unspecified Coding Level of Care Code Tele Est Pt Level 3 (84806) Diagnoses Dyslipidemia E78.5 Time Spent (min) 10
== END 2023-11-25 17:05 | disposition home or self-care (01) ==
LOC: HO.HMCFM 14:36
PROVIDERS: PCP Family Medicine; Visit Provider Nurse Practitioner Family
DX: E78.5 Hyperlipidemia, unspecified (principal)

== ENCOUNTER → 2023-11-25 14:36 | Outpatient (BNVA) | payer OTHER, SELFPAY | PROVIDERS: PCP Family Medicine; Visit Provider Nurse Practitioner Family | DX: E78.5 Hyperlipidemia, unspecified (principal) ==

== ENCOUNTER 2025-01-02 07:51 | Outpatient (AMB) | payer OTHER, SELFPAY ==
--- NOTE | 2025-01-02 07:54 | MHC.PC.OV ---
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 He is not prescription medication. Acute issue(s) - None Past Medical History - Dyslipidemia, GERD, skin moles Social History - Former smoker, smoked a couple cigarettes daily for a couple of years, quit about 2 years ago. History of vaping nicotine for a couple of years, quit about 8 moths ago. Drinks 1 glass of burban 1-2 times weekly. Denies recreational drug use - Has been making healthy dietary choices. Exercises routinely. Generally sleep well Health maintenance - Last eye exam was several years ago. Referred to Ophthalmology for routine eye exam - Last dental visit was over 10 years ago; encouraged to schedule an appointment with his dentist for routine dental care - Last tetanus vaccine unknown. He will confirm with his former PCP - Has not been vaccinated for the flu this season; declines vaccination Specialists - [facility] Medical History Arm fracture, left Radius and ulna distal fracture Elbow fracture, right Right fibular fracture GERD (gastroesophageal reflux disease) Surgical History History of surgery on lower extremity History of surgery on arm Hx of esophagogastroduodenoscopy Family History Mother Asthma Melanoma Father No problems noted. Sister No problems noted. Brother No problems noted. Social History Household Members: Spouse and Children Both parents involved: No Caregiver staying overnight: No Housing: House Are you a primary associate director career services to a significant other at home: No Do you presently have visiting nurse or other home services: No 75 years or older and lives alone: No Alcohol intake: current Patient Tobacco Use Status: Former Tobacco user Tobacco use type: Cigarette Cigarette Packs Per Day: 0 Cigarettes Per Day: 2 Years Smoked: 2 e-Cigarette/Vaping Use: Former Use Second Hand Smoke Exposure: No Special kathrin needs: No service: No Current occupational status: employed 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 1. Little interest or pleasure in doing things: not at all 2. Feeling down, depressed, or hopeless: not at all 3. Trouble falling or staying asleep, or sleeping too much: several days 4. Feeling tired or having little energy: not at all 5. Poor appetite or overeating: not at all 6. Feeling bad about yourself - or that you are a failure or have let yourself or your family down: not at all 7. Trouble concentrating on things, such as reading the newspaper or watching television: not at all 8. Moving or speaking so slowly that other people could have noticed. Or the opposite - being so fidgety or restless that you have been moving around a lot more than usual: not at all 9. Thoughts that you would be better off or of hurting yourself in some way: not at all Total score: 1 Depression Screening Interpretation: Negative Depression Screening Done: Yes 78841 - PHQ-9 Billing: Yes Source: Developed by Drs. Edis Navas, Dayan Yi, Raj Robertson and colleagues, with an educational flash from [employer]. Thrive Questionnaire Date Thrive assessed: 01/02/25 I am a: Patient What is your living situation today?: I have a steady place to live Within the past 12 months, did the food you bought not last and you didn't have the money to get more?: Never true Within the past 12 months, did you worry whether your food would run out before you got money to buy more?: Never true Do you have trouble paying for medicines?: No Do you have trouble getting transportation to medical appointments?: No Do you have trouble paying your heating and electricity bill?: No Do you have trouble taking care of your child, family member or friend?: No Do you have trouble with day-to-day activities such as bathing, preparing meals, shopping, managing finances, etc.?: No Are you currently unemployed and looking for a job?: No Are you interested in more education?: No Please select the resources that you would like help with: None Currently or been in a relationship where the following occur: No concerns reported THRIVE Score: 0 AUDIT C Alcohol Use Questionnaire (AUDIT-C) 1. How often do you have a drink containing alcohol?: 2-4 times a month 2. How many drinks containing alcohol do you have on a typical day when you are drinking?: 1 or 2 3. How often do you have six or more drinks on one occasion?: Never Total Score: 2 Score Reviewed/Action Taken: Yes ESE-7 AMB Questionnaire ESE-7 Date ESE - 7 assessed: 01/02/25 Feeling nervous, anxious, or on edge: 1 = Several days Not being able to stop or control worryin = Not at all Worrying too much about different things: 0 = Not at all Trouble relaxin = Several days Being so restless that it is hard to sit still: 0 = Not at all Becoming easily annoyed or irritable: 1 = Several days Feeling afraid as if something awful might happen: 0 = Not at all Total ESE-7 score (0-4 normal; 5-9 mild; 10-14 moderate; 15-21 severe): 3 Source: Developed by Drs. Edis Navas, Dayan Yi, Raj Robertson and colleagues, with an educational flash from [employer]. ESE-7 Assessment Billing ESE-7 Assessment Tool: ESE-7 Assessment 85235 Review of Systems Const Details: Denies chills, Denies fatigue, Denies fever(s), Denies headache(s) and Denies weakness HEENT Denies change in vision, Denies dizziness, Denies headache(s), Denies hearing loss, Denies nasal congestion, Denies sinus pain, Denies sinus pressure and Denies sore throat Card Denies chest pain, Denies lightheadedness, Denies dyspnea and Denies other (palpitations) Resp Denies cough, Denies dyspnea and Denies wheezing GI Denies abdominal pain, Denies melena, Denies hematochezia, Denies change in bowel habits, Denies dyspepsia and Denies nausea Denies hematuria and Denies dysuria Musc Denies abnormal gait, Denies myalgias, Denies arthralgias, Denies numbness and Denies tingling Skin/Breast Denies rash, Denies unusual bruising and Denies wounds Neuro Denies abnormal gait, Denies dizziness, Denies headache(s), Denies memory loss, Denies numbness, Denies Sensory deficit (Neuro), Denies tingling and Denies weakness Psych Denies anxiety, Denies depression and Denies memory loss Endo Denies cold intolerance, Denies fatigue, Denies heat intolerance, Denies polydipsia and Denies polyuria Juan Manuel/Lymph Denies easy bleeding and Denies easy bruising Aller/Immun Denies wheezing Physical exam (Primary Care) Vital Signs: Last Vital Signs Temp 98.2 F 01/02/25 07:59 Pulse 76 01/02/25 07:59 Resp 16 01/02/25 07:59 BP 118/71 01/02/25 07:59 Pulse Ox 97 01/02/25 07:59 Oxygen Delivery Method Room Air 01/02/25 07:59 BMI result Body Mass Index 27.7 Tobacco/Smoking Status: Tobacco use Status Tobacco use date assessed 01/02/25 01/02/25 07:59 Patient Tobacco Use Status Former Tobacco user 01/02/25 07:59 Tobacco use type Cigarette 01/02/25 07:59 e-Cigarette/Vaping Use Former Use 01/02/25 07:59 PHQ-9: PHQ-9 Score PHQ-9: Total score 1 01/02/25 07:59 Depression Screening Interpretation: Negative Thrive Assessment: Date of Thrive Assessment Date Thrive assessed 01/02/25 01/02/25 07:59 Currently or been in a relationship where the following occur: No concerns reported Const Other: General: no acute distress, well developed, alert and awake Nutritional Appearance: well nourished Orientation/consciousness: patient oriented x3 [facility] Head: Yes normocephalic and Yes atraumatic Ears: hearing grossly normal bilaterally and TM's normal bilaterally General nose exam: Normal external nose present and Normal nares present Mouth: Normal oral and palatal mucosa present and moist mucous membranes Teeth and gingiva: dentition normal Throat: Yes oropharynx normal Eyes Pupils: Equal, round and reactive pupils present and Pupil accommodation reflex normal EOM: EOMs intact bilaterally Neck Neck: Yes normal visual inspection, Yes no lymphadenopathy and Yes trachea midline Thyroid: Thyroid normal Carotids: no bruits Lymphatic: no lymphadenopathy noted Chest Chest palpation & inspection: normal inspection of the chest Resp Effort & Inspection: normal respiratory effort Auscultation: clear to auscultation bilaterally Cardio Rate: regular rate Rhythm: regular rhythm Heart sounds: S1 normal heart sound present, S2 normal heart sound present, no gallops, no murmurs and no rubs Bruits: no abdominal aortic bruits and no carotid bruits GI Palpation (GI): No Abdominal aortic bruit present, Soft to palpation, nontender, No hepatosplenomegaly present and No Rebound tenderness present Auscultation: normal bowel sounds General: Yes no CVA tenderness Back/Spine/Pelvis Back: no CVA tenderness Cervical Spine: cervical ROM normal and No Cervical spine tenderness Thoracic/Lumbar Spine: thoraco-lumbar ROM normal, No pain with thoraco-lumbar ROM, No thoracic spinal tenderness and No lumbar spinal tenderness Skin General: warm and dry. Normal skin color. Normal skin turgor Lesions: Skin moles to head/face, arms, trunk Rashes: no rashes Trauma: no lacerations or abrasions Wounds: no wounds Nails: normal Neuro General: patient oriented x3, gait normal and CN's II-XI intact bilaterally Cranial nerves: Yes Equal, round and reactive pupils present Cognition (Neuro): normal cognition Gait exam (Neuro): Normal gait present Motor exam (neuro): 5/5 motor strength present throughout Sensory Exam: No Sensory deficit (Neuro) Deep tendon reflexes (DTR's): Right patellar reflex intensity grade: 2+ and Left patellar reflex intensity grade: 2+ Extrem General: Yes normal to inspection, No edema and No calf tenderness Psych Appearance: grossly normal Affect: normal affect Attitude: cooperative Thought process: Normal thought process present Coding Level of Care Code Est Pt Prev Care 18-39y(68788) Diagnoses Normal physical examination, routine Z00.00 Numerous skin moles D22.9 Eye exam, routine Z01.00 Laboratory tests ordered as part of a complete physical exam (CPE) Z00.00 Additional Codes ESE-7 Assessment Billing - ESE-7 Assessment Tool: ESE-7 Assessment 75092 ([id number]) PHQ-9 - 34725 - PHQ-9 Billing: Yes ([id number]) Assessment & Plan Assessment & Plan (1) Normal physical examination, routine: Code(s): Z00.00 - Encounter for general adult medical examination without abnormal findings Category: Medical Plan: No significant functional limitation. Healthy diet and routine exercise encouraged. Follow-up with Dermatology as planned. Perform lab work and follow-up for telehealth visit for labs review in 2-3 weeks. Return sooner with symptoms or concerns. Verbalized understanding and agreed with the plan. (2) Numerous skin moles: Code(s): D22.9 - Melanocytic nevi, unspecified Category: Medical Plan: Moles to head/face, arms, and trunk. Followed by Dermatology. (3) Eye exam, routine: Code(s): Z01.00 - Encounter for examination of eyes and vision without abnormal findings Category: Medical Plan: Last eye exam was several years ago. Referred to Ophthalmology for routine eye exam. (4) Laboratory tests ordered as part of a complete physical exam (CPE): Code(s): Z00.00 - Encounter for general adult medical examination without abnormal findings Category: Medical Plan: Fasting labs ordered as part of a complete physical exam. Advised to fast for at least 10 hours before getting labs drawn. May drink water Verbalized understanding and agreed with treatment plan. Orders: Orders Comprehensive Lucas. Panel Fast Today Z00.00 - Encounter for general adult medical examination without abnormal findings Lipid Panel Today Z00.00 - Encounter for general adult medical examination without abnormal findings Microalbumin, Random (w Creat) Today Z00.00 - Encounter for general adult medical examination without abnormal findings UA CC w/rflx Micro + Cult Today Z00.00 - Encounter for general adult medical examination without abnormal findings Vitamin D 25-OH Total Today Z00.00 - Encounter for general adult medical examination without abnormal findings Complete Blood Count Auto Diff Today Z00.00 - Encounter for general adult medical examination without abnormal findings TSH reflex Free T4 Today Z00.00 - Encounter for general adult medical examination without abnormal findings Referrals Ophthalmology Referral Z01.00 - Encounter for examination of eyes and vision without abnormal findings
[2025-01-02 07:59] VITALS: BP 118/71; PULSE 76; RESP 16; TEMP 36.8; O2SAT 97; BMI 27.7
== END 2025-01-02 08:29 | disposition home or self-care (01) ==
LOC: HO.HMCFM 07:52
PROVIDERS: PCP Nurse Practitioner Family; Visit Provider Nurse Practitioner Family
DX: Z00.00 Encounter for general adult medical examination without abnormal findings (principal); D22.9 Melanocytic nevi, unspecified; Z01.00 Encounter for examination of eyes and vision without abnormal findings

== ENCOUNTER 2025-01-02 07:51 | Outpatient (REF) | payer OTHER, SELFPAY ==
[2025-01-02 11:13] LABS: Appearance Urine Clear; Glucose Urine UA Negative (Negative); PH 6.0 (5.0-9.0); Specific Gravity - Urine 1.025 (1.005-1.025)
[2025-01-02 11:27] LABS: MANUAL DIFF FLAG NO
[2025-01-02 11:35] LABS: Hematocrit 41.8 % (42.0-52.0); Hemoglobin 14.5 g/dl (14.0-18.0); Imm Gran Abs Auto 0.04 X10*3/uL (0.00-0.03); Imm Gran Pct Auto 0.6 % (0.0-0.4); Lymphocytes Absolute Auto 1.8 X10*3/uL (1.2-4.9); Mean Corpuscular HGB Conc 34.7 g/dl (31.0-36.0); Mean Corpuscular Hemoglobin 30.1 pg (27.0-33.0); Mean Corpuscular Volume 86.9 fL (80.0-98.0); NRBC Abs Auto 0.000 X10*3/uL (0.0-0.012); NRBC Pct Auto 0.0 /100WBC (0.0-0.2); Platelet Count 269 X10*3/uL (160-400); Red Blood Count 4.81 X10*6/uL (4.60-5.80); White Blood Count 6.2 X10*3/uL (4.8-10.8)
[2025-01-02 12:10] LABS: Alanine Aminotransferase 31 U/L (0-40); Albumin Level 4.8 g/dL (3.5-5.0); Alkaline Phosphatase 58 U/L (39-117); Anion Gap 9 (12-20); Aspartate Amino Transferase 26 U/L (5-37); Blood Urea Nitrogen 19 mg/dL (9-16); Calcium 9.3 mg/dL (8.4-10.2); Carbon Dioxide 28 mmol/L (22-29); Chloride 108 mmol/L (96-108); Cholesterol 205 mg/dL (<200); Estimated Glomerular Filt Rate > 60; HDL Cholesterol 36 mg/dL (>40); Potassium 4.2 mmol/L (3.3-5.1); Sodium 141 mmol/L (135-145); Total Protein 7.6 g/dL (6.5-8.0); Triglycerides 187 mg/dL (<150)
[2025-01-02 12:12] LABS: Microalbum/Creatinine Ratio Ur 5.1 ug/mg cr (<30)
== END 2025-01-02 07:52 | disposition home or self-care (01) ==
LOC: HO.WFDLDS 07:51
PROVIDERS: PCP Nurse Practitioner Family; Visit Provider Nurse Practitioner Family
DX: Z00.00 Encounter for general adult medical examination without abnormal findings (principal); Z01.00 Encounter for examination of eyes and vision without abnormal findings; D22.9 Melanocytic nevi, unspecified
CPT/HCPCS: 36415; 80053; 80061; 81003; 82043; 82306; 82570; 84443; 85025; 96127

== ENCOUNTER 2025-01-23 13:47 | Outpatient (AMB) | payer OTHER, SELFPAY ==
--- NOTE | 2025-01-23 13:43 | MHC.PC.OV ---
Intake Visit Reasons: Tele 2-3 wks labs review Intake Note: patient here for 2-3 wks Telehealth follow up on meds review Remote Control Assembler Required: No Allergies Seasonal Allergies Allergy (Mild, Verified 01/23/25 13:43) Nasal congestion Tobacco use date assessed: 01/23/25 Dental Screening Dental Screen Date: 01/23/25 Did you have a dental visit in the last 12 months?: Yes Did you have a dental problem in the last 6 months where you did not have access to dental care?: No Was dental information given to patient?: Patient has dentist HPI HPI Comments History of Present Illness Details 34-year-old male presents for a telehealth visit for review of recent lab results. He notes that he generally makes healthy dietary changes. He drinks a glass bourbon/wine once a week. He is unsure of family history of HLD. He offers no complaints and denies acute symptoms at this time. [facility] Medical History Arm fracture, left Radius and ulna distal fracture Elbow fracture, right Right fibular fracture GERD (gastroesophageal reflux disease) Surgical History History of surgery on lower extremity History of surgery on arm Hx of esophagogastroduodenoscopy Family History Mother Asthma Melanoma Father No problems noted. Sister No problems noted. Brother No problems noted. Social History Household Members: Spouse and Children Both parents involved: No Caregiver staying overnight: No Housing: House Are you a primary home care specialist to a significant other at home: No Do you presently have visiting nurse or other home services: No 75 years or older and lives alone: No Alcohol intake: current Patient Tobacco Use Status: Former Tobacco user Tobacco use type: Cigarette Cigarette Packs Per Day: 0 Cigarettes Per Day: 2 Years Smoked: 2 e-Cigarette/Vaping Use: Former Use Second Hand Smoke Exposure: No Special kathrin needs: No service: No Current occupational status: employed 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 Edis Navas, Dayan Yi, Raj Robertson and colleagues, with an educational flash from [employer]. Review of Systems Const Details: Denies chills, Denies fatigue, Denies fever(s), Denies headache(s) and Denies weakness Cardiac Denies chest pain, Denies claudication, Denies leg edema, Denies lightheadedness, Denies palpitations, Denies dyspnea, Denies dyspnea on exertion, Denies orthopnea and Denies other (Loss of consciousness) Resp Denies cough, Denies excessive phlegm production, Denies dyspnea, Denies dyspnea on exertion, Denies snoring and Denies wheezing Physical exam (Primary Care) Tobacco/Smoking Status: Tobacco use Status Tobacco use date assessed 01/23/25 01/23/25 13:43 Patient Tobacco Use Status Former Tobacco user 01/23/25 13:43 Tobacco use type Cigarette 01/23/25 13:43 e-Cigarette/Vaping Use Former Use 01/23/25 13:43 Thrive Assessment: Date of Thrive Assessment Date Thrive assessed 01/02/25 01/23/25 13:43 Const Other: Patient is alert and oriented x4 Telehealth Telehealth Telehealth Platform: Telephone Location of provider rendering services: practice address Location of patient: address on file Patient Identification confirmed using: Name, : Yes Telehealth method: voice only Patient verbally consented to treatment: Yes Patient verbally consented to billing insurance company: Yes Patient informed of any privacy concerns related to visit: Yes Coding Level of Care Code Tele Est Pt Level 3 (83552) Diagnoses Hyperlipidemia E78.5 Assessment & Plan Assessment & Plan (1) Hyperlipidemia: Code(s): E78.5 - Hyperlipidemia, unspecified Category: Medical Plan: Recent triglycerides, total cholesterol, and LDL levels are elevated, 187, 205, and 132 respectively, HDL level is slightly low, 36. Previous triglycerides, total cholesterol, LDL, and HDL levels were 317, 184, 88, and 36 respectively. He wants to continue to make lifestyle changes instead of starting medication at this time. Advised to limit foods high in saturated fat and avoid foods high in trans fat. Routine exercise encouraged. Fast for 10-12 hours, may drink water, and perform lipid panel blood work a few days before next visit. Follow-up for transfer of care in 2-3 months. Return sooner with symptoms or concerns. Verbalized understanding and agreed with the plan. Orders: Orders Lipid Panel 2 Months E78.5 - Hyperlipidemia, unspecified
== END 2025-01-23 14:09 | disposition home or self-care (01) ==
LOC: HO.HMCFM 13:48
PROVIDERS: PCP Nurse Practitioner Family; Visit Provider Nurse Practitioner Family
DX: E78.5 Hyperlipidemia, unspecified (principal)